=== PATIENT | female | born 1980 | race Two or more races ===

== ENCOUNTER 2024-10-10 10:41 | Emergency (ER) | payer OTHER ==
[~2024-10-10] VITALS: Ht 160 cm; Wt 68.2 kg
[2024-10-10 10:44] VITALS: BP 155/82; PULSE 116; RESP 18; O2SAT 99
[2024-10-10] MEDS ORDERED: ACETAMINOPHEN 500 MG TABLET PO ONE (12:00)
[2024-10-10 12:08] VITALS: TEMP 99.9
[2024-10-10] MEDS: GuaiFENesin/D-METHORPHAN [SUGAR-FREE] 200-20MG/10 ML SYRUP UDCUP PO ONE (12:09)
[2024-10-10] MEDS: IBUPROFEN 600 MG TABLET PO ONE (12:09)
[2024-10-10 12:51] LABS: COVID AG,FIA SOURCE NASAL SWAB
[2024-10-10] MEDS ORDERED: ACET-66 PO (13:20)
[2024-10-10] MEDS ORDERED: IBUP-1554 PO (13:20)
[2024-10-10] MEDS ORDERED: GUAIFDM PO (13:20)
[2024-10-10 13:39] LABS: SARS-COV2 (COVID) ANTIGEN,FIA Negative (Negative)
[2024-10-10 13:40] LABS: INFLUENZA TYPE A NEGATIVE FOR TYPE A (NEGATIVE); INFLUENZA TYPE B NEGATIVE FOR TYPE B (NEGATIVE)
== END 2024-10-10 13:43 | disposition home or self-care (01) ==
LOC: EMS 10:42
DX: J06.9 Acute upper respiratory infection, unspecified (principal); Z20.822 Contact with and (suspected) exposure to COVID-19
CPT/HCPCS: 87804; 99283